=== PATIENT | male | born 1935 | race Caucasian/White ===

== ENCOUNTER 2019-08-16 12:35 | Inpatient (IN) | payer OTHER ==
[~2019-08-16] VITALS: Ht 167.6 cm; Wt 0.5 kg
[2019-08-16 13:08] VITALS: BP_SYST 153
--- NOTE | 2019-08-16 13:10 | NUR ---
Patient to ER bed 5 to gown for evaluation. Side rails up. Report given to Caty JAMES.
--- NOTE | 2019-08-16 13:18 | NUR ---
Pt given meal tray ,pt requested food. Pt tolerated well, approximately 85-90% consumed
--- NOTE | 2019-08-16 13:20 | NUR ---
Pt sent from [facility] in [place] for evaluation of failure to thrive and poor intake. Pt arrived via POV. No acute distress noted. VSS. Pt ambulated to treatment with slow steady gait.
--- NOTE | 2019-08-16 13:25 | NUR ---
HAFSA Ramirez at bedside examining patient.
[2019-08-16] MEDS ORDERED: LORazepam 2 MG/ML VIAL IM ONE (13:30)
[2019-08-16] MEDS ORDERED: DIPHENHYDRAMINE INJ 50 MG/ML VIAL IM ONE (13:30)
--- NOTE | 2019-08-16 13:30 | NUR ---
Pt medicated for increased agitation.
--- NOTE | 2019-08-16 14:30 | NUR ---
Pt sleeping, arousable to verbal stimuli continuing to monitor.
[2019-08-16 14:54] LABS: BARBITURATE, URINE NEGATIVE (NEG <=200); BENZODIAZEPINE, URINE POSITIVE (NEG <=150); UR TRICYCLIC ANTIDEPRESSANTS POSITIVE (NEG <=300); URINE AMPHETAMINE NEGATIVE (NEG <=500)
[2019-08-16 14:55] LABS: CANNABINOID, URINE NEGATIVE (NEG <=50); COCAINE, URINE NEGATIVE (NEG <=150); METHAMPHETAMINES SCREEN,URINE NEGATIVE (NEG <=500); OPIATE, URINE NEGATIVE (NEG <=100); PHENCYCLIDINE SCREEN,URINE NEGATIVE (NEG <=25); URINE METHADONE NEGATIVE (NEG <=200); URINE OXYCODONE SCREEN NEGATIVE (NEG <=100); URINE PROPOXYPHENE SCREEN NEGATIVE (NEG <=300)
[2019-08-16 15:05] LABS: BILIRUBIN,URINE NEGATIVE (NEGATIVE); BLOOD, URINE NEGATIVE (NEGATIVE); CLARITY/URINE CLEAR (CLEAR); COLOR,URINE YELLOW (YELLOW); GLUCOSE,URINE NEGATIVE (NEGATIVE); KETONES,URINE NEGATIVE (NEGATIVE); LEUKOCYTE ESTERASE ,URINE NEGATIVE (NEGATIVE); NITRITE, URINE NEGATIVE (NEGATIVE); PROTEIN URINE NEGATIVE (NEGATIVE); UROBILINOGEN,URINE 0.2 (0.2-1.0)
[2019-08-16 15:18] LABS: BASOPHILS % (AUTO) 0.3 % (0.0-2.0); EOSINOPHILS % (AUTO) 11.5 % (0.0-4.0); HEMOGLOBIN 14.4 g/dL (14.0-18.0); LYMPHOCYTES # (AUTO) 1.3 K/uL (1.0-5.5); LYMPHOCYTES % (AUTO) 15.2 % (20.5-51.5); MEAN CORPUSCULAR HEMOGLOBIN 33 pg (27-31); MEAN CORPUSCULAR HGB CONC 34 % (32-36); MEAN CORPUSCULAR VOLUME 95 fL (79.0-98.0); MONOCYTES # (AUTO) 0.5 K/uL (0.0-1.0); NEUTROPHILS # (AUTO) 5.8 K/uL (1.8-7.7); PLATELET COUNT (AUTO) 152 K/uL (130-430); RED CELL DISTRIBUTION WIDTH 13.4 % (9.0-15.0); WHITE BLOOD COUNT (AUTO) 8.7 K/uL (4.8-10.8)
[2019-08-16 15:24] LABS: ANION GAP 4 (5-15); CALCIUM 7.9 mg/dL (8.4-11.0); CHLORIDE 104 mmol/L (98-107); CREATININE 0.99 mg/dL (0.55-1.30); GLUCOSE 121 mg/dL (70-99); SODIUM SERUM 136 mmol/L (136-145); UREA NITROGEN, BLOOD 19 mg/dL (8-21)
[2019-08-16 15:28] LABS: ALANINE AMINOTRANSFERASE 27 U/L (12-78); ALBUMIN 3.4 g/dL (3.4-4.8); ASPARTATE AMINOTRANSFERASE 20 U/L (10-37); CHOLESTEROL 143 mg/dL (<200); HDL CHOLESTEROL 33 mg/dL (>45); LDL CHOLESTEROL 98 mg/dL (<100); TOTAL BILIRUBIN 0.4 mg/dL (0.0-1.0); TRIGLYCERIDES 68 mg/dL (30-150)
[2019-08-16 15:30] LABS: ACETAMINOPHEN < 1 ug/mL (1-30); ALCOHOL, BLOOD < 3 mg/dL (<10)
--- NOTE | 2019-08-16 16:20 | NUR ---
Pt reoriented to purpose of visit.Pt denies any pain at this time. No acute distress noted.
[2019-08-16] MEDS ORDERED: FINA5TAB11 PO (17:55)
[2019-08-16] MEDS ORDERED: ATOR10TA68 PO (17:55)
--- NOTE | 2019-08-16 17:56 | NUR ---
pt helena be admitted under the care of Dr. Stauffer. Ordersd received
--- NOTE | 2019-08-16 17:56 | NUR ---
Medication reconciliation completed with information provided by medical chart. Any prior medication reconciliation on file was reviewed and corrected.
--- NOTE | 2019-08-16 18:17 | NUR ---
ADMISSION NOTE Received patient from ER via galindo, received report from ALFREDO JAMES. Patient admitted with diagnosis of ENCEPHALOPATHY. Patient oriented to hospital routine, call light, toileting and safety-patient verbalized understanding.
--- NOTE | 2019-08-16 18:20 | NUR ---
patient alert awake x 1. breathing even and unlabored. abdomen soft and non distended. but lots of scattered redness noted.
[2019-08-16 18:31] VITALS: BP_SYST 177
--- NOTE | 2019-08-16 18:37 | NUR ---
vital signs stable. afebrile. but bp 177/52. no pain nor sob noted.
--- NOTE | 2019-08-16 18:38 | NUR ---
has iv access on the right wrist #22.
--- NOTE | 2019-08-16 18:53 | NUR ---
mrsa screen both nares sent to laboratory
--- NOTE | 2019-08-16 19:28 | NUR ---
endorsed to Kitty JAMES
[2019-08-16 20:51] VITALS: BP_SYST 165
[2019-08-16 21:20] VITALS: BP_SYST 165
--- NOTE | 2019-08-16 21:44 | NUR ---
Neuro consultation paged Reason for consultation: ALOC Was consult called: Yes Person who was notified: Amy Consulting Physician: Yong Ferrera Consumer Relations Specialist Consumer Relations Specialist Specialty: Neurology Ordered By: Dr Stauffer
--- NOTE | 2019-08-16 21:59 | NUR ---
GI consultation paged Reason for consultation: Failure to thrive Was consult called: Yes Person who was notified: Amy Consulting Physician: Dr Balderrama; Dr Smith is on-call N[facility] Lab Technician Nitriles Lab Technician Specialty: Gastroenterology Ordered By: Dr Stauffer
[2019-08-17 01:24] VITALS: BP_SYST 158
[2019-08-17 04:22] VITALS: BP_SYST 158
[2019-08-17 05:50] LABS: ANION GAP 4 (5-15); CALCIUM 8.3 mg/dL (8.4-11.0); CHLORIDE 105 mmol/L (98-107); CREATININE 0.86 mg/dL (0.55-1.30); GLUCOSE 104 mg/dL (70-99); SODIUM SERUM 139 mmol/L (136-145); UREA NITROGEN, BLOOD 16 mg/dL (8-21)
[2019-08-17 05:51] LABS: BASOPHILS % (AUTO) 0.3 % (0.0-2.0); EOSINOPHILS % (AUTO) 12.8 % (0.0-4.0); HEMATOCRIT 41.3 % (36-54); HEMOGLOBIN 14.3 g/dL (14.0-18.0); LYMPHOCYTES # (AUTO) 1.3 K/uL (1.0-5.5); LYMPHOCYTES % (AUTO) 16.5 % (20.5-51.5); MEAN CORPUSCULAR HEMOGLOBIN 33 pg (27-31); MEAN CORPUSCULAR HGB CONC 35 % (32-36); MEAN CORPUSCULAR VOLUME 95 fL (79.0-98.0); MONOCYTES # (AUTO) 0.6 K/uL (0.0-1.0); MONOCYTES % (AUTO) 8.3 % (1.7-9.3); NEUTROPHILS # (AUTO) 4.7 K/uL (1.8-7.7); NEUTROPHILS % (AUTO) 62.1 % (40.0-70.0); PLATELET COUNT (AUTO) 145 K/uL (130-430); RED BLOOD CELL COUNT(AUTO) 4.36 MIL/uL (4.2-6.2); RED CELL DISTRIBUTION WIDTH 13.4 % (9.0-15.0); WHITE BLOOD COUNT (AUTO) 7.7 K/uL (4.8-10.8)
--- NOTE | 2019-08-17 07:33 | NUR ---
Attending Md Dr BUTCHER was called directly for diet order.
[2019-08-17 08:00] VITALS: BP_SYST 140
[2019-08-17] MEDS: D5NS 1,000 ML IV SCH ×2 (08:06→22:24)
--- NOTE | 2019-08-17 09:09 | NUR ---
PT IN BED AOX1 TO SELF IN BED IV FLUIDS INFUSING NO S/S OF ACUTE DISTRESS PT ATE BREAKFAST TOLERATED WELL WILL CONT TO MONITOR
[2019-08-17] MEDS: ATORVASTATIN 10 MG TABLET PO SCH (10:45)
[2019-08-17] MEDS ORDERED: ATORVASTATIN 10 MG TABLET PO ONE (11:45)
[2019-08-17] MEDS ORDERED: FINASTERIDE 5 MG TABLET (PROSCAR) PO ONE (11:45)
--- NOTE | 2019-08-17 15:34 | NUR ---
DCPA and SS contact: STORE OPERATIONS ASSOCIATE met with Pt. at bedside, for DCPA and social service contat. He was alert and awake, not well oriented. Pt was confused and unable to give meaningful information. He has a Hx of dementia, would derail in topics. He was not aware that he was in a hospital setting. Pt. was residing in a Memory Care Unit at [facility]. Summer Internship Mariana , reported that DPOA is daughter Katy Denton . VM left to discuss D/C plan needs. Pt. ambulates and requires moderate assistance with ADLs. Per Memory Care Unit, family indicated that Pt. would not be returning to their care. DCP to remains pending. CM will remain available for DC planning needs pending further medical stabilization.
--- NOTE | 2019-08-17 17:16 | NUR ---
pt in bed ate food will eat if food is put in hand. no signs of aspiration on swallowing. will cont to monitor for any signs of acute distress.
[2019-08-17 17:24] VITALS: BP_SYST 150
--- NOTE | 2019-08-17 20:00 | NUR ---
ptrecieved awake alert and oriented .pt is confused and dis oriented . pt said that he is feeling warm . pt is being monitored for warm . vital sign stable .pt is on d5ns 75cc/hr pt is being monitored became he is confused . will continue monitoring pt .
--- NOTE | 2019-08-18 01:00 | NUR ---
pt has been sleeping . pt sleeping with no sleeping pill .
[2019-08-18 02:26] VITALS: BP_SYST 145
--- NOTE | 2019-08-18 05:00 | NUR ---
pt awake . no further complain .pt sleeping.
[2019-08-18 07:07] LABS: % FREE PSA 41.4 % (.); FREE PSA 0.91 ng/mL; PROSTATE SPECIFIC AG TOTAL 2.2 ng/mL (0.0-4.0)
[2019-08-18] MEDS: FINASTERIDE 5 MG TABLET (PROSCAR) PO SCH (09:06)
[2019-08-18] MEDS: ATORVASTATIN 10 MG TABLET PO SCH (09:06)
[2019-08-18 12:00] VITALS: BP_SYST 131
[2019-08-18] MEDS: D5NS 1,000 ML IV SCH (12:42)
--- NOTE | 2019-08-18 16:47 | NUR ---
Nutrition Assessment (short note d/t high patient load) A - RD reviewed pertinent nutrition-related info via EMR (physician notes/nursing notes/labs/meds/nursing care trends/care activity). Admission Dx: Encephalopathy PMH: possible dementia, HLD, BPH per physician note Current Diet Order/Nutrition Support: Regular x1 day Ht: 66"/5'6" Wt: 128#/58 kg IBW: 142#/65 kg %IBW: 89% UBW: N/A %UBW: N/A BMI: 20.7 kg/m2 (low for geriatric age) Subjective Info: Pt seen high risk d/t BMI less than 18.5 kg/m2. Pt noted w/ wt of 454 g -- RD adjusted wt per previously recorded wt of 128#/58 kg as per EMR records 08/16/191957. RN/sitter at bedside stated that pt ate 100% of breakfast, but skipped lunch as he was very sleepy. No pending plans/procedures. ESTIMATED NUTRITIONAL NEEDS CALORIES/DAY: 3008-6817 kcal/day (30-35 kcal/kg IBW for wt gain promotion) PROTEIN/DAY: 78-98 gm/day (1.2-1.5 gm/kg IBW for wt gain promotion) FLUID/DAY: 1.5-1.7 L/day (25-30 ml/kg CBW for geriatric maintenance) D - Inadequate nutritional intakes related to possible lethargy as evidenced by skipped lunch meal and inability to meet optimal nutritional requirements. I - Recommend regular diet w/ Ensure Enlive BID (ONS provides 700 kcal/day, 40 gm protein/day) M - Monitor appetite and PO intakes w/ goal of pt meeting at least 75% of estimated nutritional requirements, labs trending WNL, normal GI function, and skin integrity/wt maintenance E - High risk; RD to F/U within 2-3 days
--- NOTE | 2019-08-18 16:54 | NUR ---
Dietitian Recommendations * Recommend regular diet w/ Ensure Enlive BID (ONS provides 700 kcal/day, 40 gm protein/day) LP, RD Please refer to Nutrition Assessment for details.
--- NOTE | 2019-08-18 18:26 | NUR ---
PT SHOWS NO S/S OF ACUTE DISTTRESS PT UP IN BED EATING DINNER WILL CONT TO MONITOR
--- NOTE | 2019-08-18 20:00 | NUR ---
PT AWAKE ALERT AND ORIENTEDX3 . PT REDDNESS ALL OVERHIS BODY . PT HAVE IVD5NS 70CC/HR . PT PREPERER FOR BED IV SITE STABLE.
--- NOTE | 2019-08-19 | NUR ---
PT SLEEPING IN BED .NO V/S STABLE . IVINFUSING VERY VWELL . WILL CONTINUE TO MONITOR PT .
[2019-08-19] MEDS: D5NS 1,000 ML IV SCH ×2 (03:00→19:11)
--- NOTE | 2019-08-19 05:00 | NUR ---
BEHAVIOUR FOR SAFETEY.
[2019-08-19 06:34] VITALS: BP_SYST 133
--- NOTE | 2019-08-19 07:10 | NUR ---
A/Ox1. Resting at this time. Patient removed his IV cath. No bleeding at the site. IV will be reinserted. He is reminded not to remove IV site. Call light in place, bed locked at the lowest position, will continue to monitor.
--- NOTE | 2019-08-19 07:37 | NUR ---
IV cath is reinserted at right FA, #20, intact and patent..
[2019-08-19] MEDS: ATORVASTATIN 10 MG TABLET PO SCH (08:11)
[2019-08-19] MEDS: FINASTERIDE 5 MG TABLET (PROSCAR) PO SCH (08:12)
--- NOTE | 2019-08-19 08:42 | NUR ---
Patient finishes breakfast, tolerated without distress.
--- NOTE | 2019-08-19 10:00 | NUR ---
PATIENT IS RESTING, NO SIGNS OF DISTRESS NOTED.
[2019-08-19 12:12] VITALS: BP_SYST 141
--- NOTE | 2019-08-19 12:15 | NUR ---
PATIENT IS EATING LUNCH, TOLERATED WITHOUT DISTRESS.
--- NOTE | 2019-08-19 15:20 | NUR ---
patient is resting, no signs of distress noted.
[2019-08-19 16:00] VITALS: BP_SYST 153
--- NOTE | 2019-08-19 17:10 | NUR ---
patient is confused, insisting that he is "not in the right spot". Patient is reoriented.
--- NOTE | 2019-08-19 18:42 | NUR ---
Dr. Stauffer is at bedside assessing patient.
--- NOTE | 2019-08-19 20:00 | NUR ---
PT RECIEVED WAKE AND DISORIENTED X3 . PT CONTINUE TO BE RESTLESS. PT ASSISTED TO THE BATHROOM . VITAL SIGN STABLE . PT MADE VERY COMFORTABLE .WILL CONTINUE TO MONITOR PT FOR SAFETY
[2019-08-19 20:39] VITALS: BP_SYST 157
--- NOTE | 2019-08-19 23:00 | NUR ---
PT MEDICATED WITH ATIVAN . 0.5MG P.O FOR RESTRESTNESS .WELL MONITOR PT FOR FOR SLEEPING .
[2019-08-19] MEDS: LORazepam 1 MG TABLET PO PRN (23:33)
[2019-08-19 23:59] VITALS: BP_SYST 142
--- NOTE | 2019-08-20 | NUR ---
PT FEEL ASLEEP. VITAL STABLE . WILL CONTINUE TO MONITOR PT .
--- NOTE | 2019-08-20 02:00 | NUR ---
pt sleeping from the ativan . iv d5ns 70cc/hr. pt will continue to monitor behaviour.f
--- NOTE | 2019-08-20 03:00 | NUR ---
pt woke up no coplan ot pain. ptstill on restraint.vital sign .no complan of discomfort .
--- NOTE | 2019-08-20 04:00 | NUR ---
pt woke up again asking for breakfast . pt cleaned .will continue to monitor pt .
--- NOTE | 2019-08-20 05:30 | NUR ---
pt still rest less . pt still confused . will continue pt monitor .
--- NOTE | 2019-08-20 07:00 | NUR ---
induced to a male nurse . iv still infusing , pt will comtinue to be monitor.
--- NOTE | 2019-08-20 07:17 | NUR ---
PATIENT IS CONFUSED AND ATTEMPTS TO GET OUT OF BED DESPITE REPEATED ATTEMPTS OF ORIENTATION. SITTER AT BEDSIDE. CALL LIGHT IN PLACE, BED LOCKED AT THE LOWEST POSITION, WILL CONTINUE TO MONITOR.
[2019-08-20] MEDS: D5NS 1,000 ML IV SCH ×2 (07:36→21:54)
[2019-08-20 08:00] VITALS: BP_SYST 135
--- NOTE | 2019-08-20 08:30 | NUR ---
Patient is eating breakfast at this time. Tolerated without distress.
[2019-08-20 08:34] LABS: BASOPHILS % (AUTO) 0.4 % (0.0-2.0); EOSINOPHILS # (AUTO) 0.4 K/uL (0.0-0.4); EOSINOPHILS % (AUTO) 3.7 % (0.0-4.0); HEMATOCRIT 39.5 % (36-54); HEMOGLOBIN 13.4 g/dL (14.0-18.0); LYMPHOCYTES # (AUTO) 1.1 K/uL (1.0-5.5); LYMPHOCYTES % (AUTO) 9.5 % (20.5-51.5); MEAN CORPUSCULAR HEMOGLOBIN 32 pg (27-31); MEAN CORPUSCULAR HGB CONC 34 % (32-36); MEAN CORPUSCULAR VOLUME 95 fL (79.0-98.0); MONOCYTES # (AUTO) 0.9 K/uL (0.0-1.0); MONOCYTES % (AUTO) 7.2 % (1.7-9.3); NEUTROPHILS # (AUTO) 9.4 K/uL (1.8-7.7); NEUTROPHILS % (AUTO) 79.2 % (40.0-70.0); PLATELET COUNT (AUTO) 152 K/uL (130-430); RED BLOOD CELL COUNT(AUTO) 4.16 MIL/uL (4.2-6.2); RED CELL DISTRIBUTION WIDTH 13.2 % (9.0-15.0); WHITE BLOOD COUNT (AUTO) 11.8 K/uL (4.8-10.8)
[2019-08-20 09:34] LABS: ANION GAP 6 (5-15); CALCIUM 8.2 mg/dL (8.4-11.0); CHLORIDE 107 mmol/L (98-107); CREATININE 0.86 mg/dL (0.55-1.30); GLUCOSE 103 mg/dL (70-99); POTASSIUM 3.7 mmol/L (3.5-5.1); SODIUM SERUM 139 mmol/L (136-145); UREA NITROGEN, BLOOD 16 mg/dL (8-21)
[2019-08-20] MEDS: ATORVASTATIN 10 MG TABLET PO SCH (09:45)
[2019-08-20] MEDS: FINASTERIDE 5 MG TABLET (PROSCAR) PO SCH (09:46)
--- NOTE | 2019-08-20 10:42 | NUR ---
Patient urinated about 250 ml of urine.
[2019-08-20 12:05] VITALS: BP_SYST 124
--- NOTE | 2019-08-20 12:25 | NUR ---
Patient is eating lunch at this time. No signs of distress noted.
--- NOTE | 2019-08-20 14:51 | NUR ---
patient is resting, no signs of distress noted.
[2019-08-20 16:05] VITALS: BP_SYST 149
[2019-08-20] MEDS: LORazepam 1 MG TABLET PO PRN (16:26)
--- NOTE | 2019-08-20 16:49 | NUR ---
Dr. Saeed is paged, but his exchange is not functional at this time. Text message is left on Dr. Saeed's personal phone.
--- NOTE | 2019-08-20 17:54 | NUR ---
Dr. Saeed is called in regards of the consult. He informs RN that he will see the patient tomorrow.
--- NOTE | 2019-08-20 18:51 | NUR ---
Patient finishes his dinner, tolerated without distress.
[2019-08-20 20:00] VITALS: BP_SYST 140
--- NOTE | 2019-08-20 20:00 | NUR ---
PT RECIEVED AWAKE BUT TRYING TO COME OUT OF THE BED BY HIMSELF . PT NOT DUE FOR ANY MEDICATION . PT ASISTED TO THE BATHROMM . PT ON IV D5NS 70CC/HR .. PT MONITOR FOR SAFETY .
--- NOTE | 2019-08-20 22:00 | NUR ---
PT SLEEPING QUITELY.PT CLEAN AND MADE COMFORTABLE.
[2019-08-20 23:26] VITALS: BP_SYST 150
[2019-08-21] VITALS: BP_SYST 142
--- NOTE | 2019-08-21 | NUR ---
PT SLEEPING SOUNDLY . . PTWILL BE DOMITORED FOR SAFETY.
[2019-08-21 04:00] VITALS: BP_SYST 140
--- NOTE | 2019-08-21 04:00 | NUR ---
PT WAS UP FOR BATHROOM . NO AGITAGION NOTED . AM CARE GIVEN . WILL CONTINUE TO MONITOR FOR ANY CHANGES.
--- NOTE | 2019-08-21 05:00 | NUR ---
PT WILL CONTINUUE TO BE MONITORED .
--- NOTE | 2019-08-21 07:50 | NUR ---
Opening Note Patient resting in bed, A&Ox1, , reoriented to place, time, and event, patient able to follow commands when told what to do, assessment complete, no signs of distress, continuing to monitor, bed in lowest position, three side rails up, bed alarm on, call light within reach, bed close to nursing station, fall and aspiration precautions in place, sitter remains at bedside.
[2019-08-21] MEDS: FINASTERIDE 5 MG TABLET (PROSCAR) PO SCH (08:40)
[2019-08-21] MEDS: ATORVASTATIN 10 MG TABLET PO SCH (08:40)
[2019-08-21] MEDS: risperiDONE 0.25 MG TABLET (RisperDAL) PO SCH ×2 (08:41→21:52)
--- NOTE | 2019-08-21 08:50 | NUR ---
Medications Patient resting in bed, administered medications, patient tolerated well, continuing to monitor, bed in lowest position, three side rails up, bed alarm on, call light within reach, bed close to nursing station, fall and aspiration precautions in place, sitter remains at bedside.
[2019-08-21 09:28] VITALS: BP_SYST 132
--- NOTE | 2019-08-21 10:30 | NUR ---
Hygiene provided hygiene care, patient tolerated well.
--- NOTE | 2019-08-21 12:12 | NUR ---
Nutrition F/U RD reviewed pt's current EMR including diet Hx, physician notes, nursing notes, pertinent labs/meds/procedures, care trends and care activity. Current Diet Order: Regular diet w/ Ensure Enlive BID x 2 days Subjective information: Pt has been tolerating current diet and has been reported w/ good appetite and PO intake x 2 days. Per EMR, last BM 08/19/19 x1. Current diet remains appropriate. Current PO intake: Good 92% average of 3 meals 08/20 ESTIMATED NUTRITIONAL NEEDS CALORIES/DAY: 9625-2857 kcal/day (30-35 kcal/kg IBW for wt gain promotion) PROTEIN/DAY: 78-98 gm/day (1.2-1.5 gm/kg IBW for wt gain promotion) FLUID/DAY: 1.5-1.7 L/day (25-30 ml/kg CBW for geriatric maintenance) D - Inadequate nutritional intakes related to possible lethargy as evidenced by skipped lunch meal and inability to meet optimal nutritional requirements. (*improved) I - Recommend continuing regular diet w/ Ensure Enlive BID (ONS provides 700 kcal/day, 40 gm protein/day) M - Monitor appetite and PO intakes w/ goal of pt meeting at least 85-100% of estimated nutritional requirements, labs trending WNL, normal GI function, and skin integrity/wt maintenance E - Moderate risk; RD to F/U within 3-5 days WILL [place]
--- NOTE | 2019-08-21 12:14 | NUR ---
Note patient resting in bed, set patient up to eat lunch, aspiration precautions in place, continuing to monitor, bed in lowest position, three side rails up, bed alarm on, fall precautions in place, sitter remains at bedside.
--- NOTE | 2019-08-21 12:15 | NUR ---
Dietitian recommendation Recommend continuing regular diet w/ Ensure Enlive BID (ONS provides 700 kcal/day, 40 gm protein/day) [facility], RD
[2019-08-21] MEDS: D5NS 1,000 ML IV SCH (13:20)
[2019-08-21 13:47] VITALS: BP_SYST 140
--- NOTE | 2019-08-21 13:51 | NUR ---
Medications Patient resting in bed, vitals signs taken, denies pain, administered IV medication, IV line patent and infusing well, continuing to monitor, bed in lowest position, three side rails up, bed alarm on, call light within reach, bed close to nursing station, fall and aspiration precautions in place, sitter remains at bedside.
--- NOTE | 2019-08-21 14:12 | NUR ---
Spoke with Dr. Stauffer patient is okay to discharge to SNF today, continue current hospital orders.
--- NOTE | 2019-08-21 14:52 | NUR ---
Called the patient's family spoke with patient's , Porfirio, regarding plan of care, she verbalized understanding, Porfirio requesting for her daughter to be called. Called patient's daughter, Katy, informed her of discharge today, she verbalized understanding.
--- NOTE | 2019-08-21 15:29 | NUR ---
Discharge Planning: ALEE tried to arrange transportation back to [facility] ([phone]) in [facility]. ALEE was told patient had no criteria for ambulance transport, ALEE made CM and director aware. [facility] called the patients daughter Katy ([phone] Wk#) made her aware transport would not be covered and would be patient responsibility, she stated she will call the facility to see if they could help. Addendum: 08/21/19 at 1702 by Dnaielle PARDO ALEE received a call from Melvina at [facility] ([phone]), she is going to arrange transport for patient if okay with director, she will call nurse station with information daughter is aware.
[2019-08-21 16:07] VITALS: BP_SYST 156
--- NOTE | 2019-08-21 16:27 | NUR ---
Note patient resting in bed, eyes closed, breathing is even and unlabored, no signs of distress, pending discharge to SNF today, awaiting call back from DC inventory planner at this time, continuing to monitor the patient, bed in lowest position, three side rails up, bed alarm on, fall and aspiration precautions in place.
--- NOTE | 2019-08-21 16:30 | NUR ---
Dr. Saeed/Spoke with Bomb Squad Officer Spoke with Dr. Saeed to get clearance for discharge to SNF today, Dr. Wilkins prefers the patient to go to [facility] prior to DC to SNF to monitor patient because he just started taking Risperidone. Informed Cristina Bomb Squad Officer of what Dr. Saeed said, according to Cristina, patient would need a 5150 hold which he does not have from Dr. Wilkins at this time and the family does not have "LPS" certification to sign patient into a psych facility. Dr. Wilkins was paged to inform of patient requiring a 5150 for [facility] if that is what Dr. Wilkins wants for the plan of care.
--- NOTE | 2019-08-21 17:47 | NUR ---
Spoke with Melvina from [facility], she stated that transport is not available for tonight and will possibly be arranged for tomorrow morning. Informed the Charge Nurse Renu JAMES, will notify Dr. Stauffer as well. Addendum: 08/21/19 at 1748 by Joe Peterson RN Melvina will call hospital Literature Professor tomorrow morning to give transportation information.
--- NOTE | 2019-08-21 17:52 | NUR ---
Colton Stauffer regarding DC planning. Addendum: 08/21/19 at 1758 by Joe Peterson RN Informed MD about transportation issue and about what Dr. Wilkins stated about DC planning, MD stated to hold discharge, no further orders at this time.
--- NOTE | 2019-08-21 18:25 | NUR ---
Closing note patient resting in bed, eyes closed, breathing is even and unlabored, no signs of distress, continuing to monitor, will endorse report to NOC shift nurse, bed in lowest position, three side rails up, bed alarm on, bed close to nursing station, fall and aspiration precautions in place, IV line is patent and infusing well.
--- NOTE | 2019-08-21 19:45 | NUR ---
RECEIVED REPORT AT BEDSIDE, PATIENT ASLEEP, OPENED HIS EYES TO HIS NAME, THEN RETURNED TO SLEEP.WILL CONT. TO MONITOR FOR CHANGES AND SAFETY NEEDS.
[2019-08-21 20:00] VITALS: BP_SYST 132
[2019-08-21] MEDS: LORazepam 1 MG TABLET PO PRN (21:53)
--- NOTE | 2019-08-21 23:00 | NUR ---
MED PASS DONE, PATIENT TOLERATED PO MEDS WELL. SLEPT AT INTERVALS, THEN WOKE UP, REMOVING HIS CLOTHING AND BEING VERY TALKATIVE. DESPITE CONTINUES REDIRECTION, PT REPEATEDLY KEEPS REMOVING CLOTHING ASKING FOR UNDERWEAR, SHORTS AND A SHIRT. WILL CONT TO MONITOR FOR SAFETY AND ANY NOTED CHANGES.
[2019-08-22] VITALS (7 sets, daily range): BP systolic 124–150
[2019-08-22] MEDS: D5NS 1,000 ML IV SCH ×2 (02:30→17:00)
--- NOTE | 2019-08-22 03:00 | NUR ---
PATIENT AWAKE, CONFUSED, VERY TALKATIVE, ATTEMPTED TO GET OUT OF BED, AND REMOVING CLOTHING REPEATEDLY. RE-DIRECTED BACK INTO BED. HOWEVER PATIENT CONTINUES TO REPEAT ACTIONS AND STATE BIZARRE COMMENTS AND ASKING TO CLOSE THE DOOR, AND DID YOU EAT THE ICE CREAM. PT WAS RE-DIRECTED, WHICH WAS PARTIALLY EFFECTIVE AND VERY EXHAUSTING THE PRIMARY NURSE. REPEATED RE-DIRECTION WAS SHORT LIVED. WILL CONT. TO MONITOR CLOSELY FOR CHANGES.
[2019-08-22] MEDS: LORazepam 1 MG TABLET PO PRN (04:48)
--- NOTE | 2019-08-22 06:10 | NUR ---
PATIENT AWAKE, CONFUSED, VERY TALKATIVE, ATTEMPTED TO GET OUT OF BED, W/ HELP OF OTHER STAFF MEMBERS PT WAS EFFECTIVELY RE-DIRECTED BACK INTO BED. CONT. TO STATE CLOSE THE DOOR, AND HE NEEDS TO PUT ON HIS CLOTHES, REASON HE IS ATTEMPTING TO GET OOB. PT WAS RE-DIRECTED, PO ATIVAN GIVEN EARLIER W/ NO EFFECTIVE RESULT, PT HAS BEEN RESTLESS ALL NIGHT AND VERY TALKATIVE, W/ CONTINUES REMOVAL OF HIS CLOTHING, REPEATED RE-DIRECTION WAS SHORT LIVED. WILL CONT. TO MONITOR CLOSELY FOR CHANGES.
--- NOTE | 2019-08-22 07:00 | NUR ---
PT W/ [place] AT PRESENT. VERY DIFFICULT AND TIME CONSUMING MANAGING PSYCH NEEDS, MEDICAL NEEDS AND NURSING EXPECTED DUTIES A PRIMARY CLINICAL AIDE.
[2019-08-22] MEDS: FINASTERIDE 5 MG TABLET (PROSCAR) PO SCH (08:28)
[2019-08-22] MEDS: risperiDONE 0.25 MG TABLET (RisperDAL) PO SCH (08:28)
[2019-08-22] MEDS: ATORVASTATIN 10 MG TABLET PO SCH (08:29)
--- NOTE | 2019-08-22 10:00 | NUR ---
Patient ver7y confused getting out of bed risk of falling sitter at the bedside , generalized rashes in the body, Dr. BUTCHER informed regarding patient behavior and rashes with n.o. carried out.
--- NOTE | 2019-08-22 11:00 | NUR ---
Skin Patient irritable with generalized rashes TSB done skin kept dry/clean , Benadryl po given no aspiration, will follow up.
[2019-08-22] MEDS: DIPHENHYDRAMINE HCL 25 MG CAPSULE PO PRN ×2 (11:03→19:17)
[2019-08-22] MEDS ORDERED: ACETAMINOPHEN 650 MG/20.3 ML UDC GT PRN (11:45)
[2019-08-22] MEDS ORDERED: QUEtiapine FUMARATE 25 MG TABLET PO ONE (12:15)
--- NOTE | 2019-08-22 13:00 | NUR ---
IV RE-INSERTION: IV site is red IV mildly swollen. Restarted on left upperv arm . Successful after 2 attempts. Resumed current IVF , Will observe for any signs of infiltration.
--- NOTE | 2019-08-22 14:27 | NUR ---
Patient sleeping , unable to eat lunch , no sign of acute discomfort, with IV fluid infusing well ,safety fall/precaution initiated.
--- NOTE | 2019-08-22 16:30 | NUR ---
Patient is awake perineal care given, rashes is much better compare to morning , due meds given , no aspiration, safety/fall precaution initiated sitter at the bedside.
--- NOTE | 2019-08-22 18:32 | NUR ---
Patient sleeping , no sign of acute distress ,safety/fall precaution initiated.
--- NOTE | 2019-08-22 20:00 | NUR ---
PT RECEIVED AWAKE ALERT AND CONFUSED PT HAD BENADRYI .PT IV INFILTRATED ON THE RIGHT HAND IV RESTATED ON THE HEFT HAND . VITAL SIGN STABLE . PT OND5NS 5CC/HR.PT CLEAN AND DRIED UP . WILL CONTINUE TO MONITOR PT .
[2019-08-22] MEDS: QUEtiapine FUMARATE 25 MG TABLET PO SCH (22:02)
[2019-08-23] VITALS (7 sets, daily range): BP systolic 141–172
--- NOTE | 2019-08-23 | NUR ---
PT AWAKE, NO COMPLAIN OF ANY DISCOMFORT .NO SHORTNESS OF BREATH . VITAL SIGN TAKEN .WILL CONTINUE TO MONITOR PT .
[2019-08-23] MEDS: DIPHENHYDRAMINE HCL 25 MG CAPSULE PO PRN (04:21)
--- NOTE | 2019-08-23 04:30 | NUR ---
PT CAME OUT OF BED . ASSISTED BACK TO BED , VITAL STABLE BENADRL GIVEN , PT FELL ASLEEP .
--- NOTE | 2019-08-23 06:40 | NUR ---
PT WOKE UP SAYING THAT HE WANT A CUP OF COFFEE. PT WANT TO GET OUT OF THE BED TO GO GET A CUP OF COFFEE . PT ASURED THAT IN THE MORNING HE WILL GET A CUT OF COFFEE. .
[2019-08-23] MEDS: D5NS 1,000 ML IV SCH (07:06)
--- NOTE | 2019-08-23 07:50 | NUR ---
opening notes Patient is resting in bed, eyes closed, breathing easy and non-labored. IV fluids running. Educated patient on plan of care, patient unable to respond because he is drowsy. No other needs at this time. Fall/safety precautions. Addendum: 08/23/19 at 1136 by Tab Torres RN IV site infiltrated, will attempt a new IV site when patient is more cooperative.
--- NOTE | 2019-08-23 09:54 | NUR ---
rounds Patient is resting in bed, eyes closed, breathing easy and non-labored. Unable to give morning medications at this time due to drowsiness. No other signs of distress at this time. Fall/safety precautions.
[2019-08-23] MEDS: QUEtiapine FUMARATE 25 MG TABLET PO SCH (10:59)
[2019-08-23] MEDS: ATORVASTATIN 10 MG TABLET PO SCH (10:59)
[2019-08-23] MEDS: FINASTERIDE 5 MG TABLET (PROSCAR) PO SCH (11:00)
--- NOTE | 2019-08-23 11:37 | NUR ---
rounds Assisted patient with eating and was able to take his medication crushed, patient tolerated it well. Patient is resting in bed, eyes closed, breathing easy and non labored. No signs of distress at this time. Fall/safety precautions.
--- NOTE | 2019-08-23 13:30 | NUR ---
ROUNDS Patient is resting in bed, eyes closed, breathing easy and non labored. No signs of distress at this time. No other needs at this time. Fall and safety precautions.
--- NOTE | 2019-08-23 15:05 | NUR ---
Discharge Planning: ALEEP followed up with Melvina Hamlin (F [phone] p [phone]) [facility], [facility] ([phone]) 5:30pm P/U. DCP made Med Tech aware, DCP took patient packet to nurse station.
--- NOTE | 2019-08-23 15:23 | NUR ---
ROUNDS Patient is resting in bed, eyes closed, breathing easy and non labored. No signs of distress at this time. No other needs at this time. Fall/safety precautions.
--- NOTE | 2019-08-23 17:45 | NUR ---
PT TRANSFERRED Report given to PET at [facility]. Transfer packet with Transfer Orders and Medication Reconciliation form given to EMT with report. Exitcare provided. [facility] ID band removed, replaced with ID band with pt's name and . IV catheter removed, intact and dressing applied, no active bleeding. All belongings sent with patient. Patient left floor via gurney escorted by EMT in no distress.
[2019-08-28 20:00] VITALS: BP_SYST 124
== END 2019-08-23 17:45 | DRG 92 ==
LOC: SED 12:35 → SMU 17:48
PROVIDERS: ADMIT Internal Medicine; ATTEND Internal Medicine
DX: G92 Toxic encephalopathy (principal); E46 Unspecified protein-calorie malnutrition; F03.90 Unspecified dementia, unspecified severity, without behavioral disturbance, psychotic disturbance, mood disturbance, and anxiety; E78.5 Hyperlipidemia, unspecified; R62.7 Adult failure to thrive; J44.9 Chronic obstructive pulmonary disease, unspecified; N40.1 Benign prostatic hyperplasia with lower urinary tract symptoms; R35.0 Frequency of micturition; Z79.899 Other long term (current) drug therapy
CPT/HCPCS: 36415; 71045; 80048; 80053; 80061; 80307; 81003; 83036; 83605; 84153; 84484; 85025; 87040-TC; 87081; 87086; 93005; 96372; 97110-GP; 99285; G0480; G0481; G0482; J1200; J2060; J7042; Q0163